=== PATIENT | female | born 2000 | race Caucasian/White ===

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

== ENCOUNTER → 2018-03-04 | Outpatient (CLI) | payer OTHER ==
[~2018-03-04] MED LIST changes: +Vibramycin100 MG PO
== END | disposition home or self-care (01) ==
LOC: LAB EV 15:38 → LAB SHORT 15:38
DX: N39.0 Urinary tract infection, site not specified (principal)
CPT/HCPCS: 87086

== ENCOUNTER 2018-08-02 16:11 | Emergency (ER) | payer OTHER ==
[~2018-08-02] VITALS: Ht 157.5 cm; Wt 86.2 kg
[2018-08-02] MEDS ORDERED: ANTIDEPRESSANT (16:16)
[2018-08-02] MEDS ORDERED: Flonase 0.05% N16 GM (16:25)
[2018-08-02] MEDS ORDERED: BENZ100A PO (16:25)
== END 2018-08-02 16:34 | disposition home or self-care (01) ==
LOC: ER 16:11
DX: J06.9 Acute upper respiratory infection, unspecified (principal); Z88.0 Allergy status to penicillin
CPT/HCPCS: 99283

== ENCOUNTER 2019-01-27 00:45 | Emergency (ER) | payer OTHER ==
[~2019-01-27] VITALS: Ht 157.5 cm; Wt 77.1 kg
[~2019-01-27 00:45] MED LIST changes: +ANTIDEPRESSANT; +BENZ100A PO; +Flonase 0.05% N16 GM
[2019-01-27] MEDS ORDERED: IUD (02:56)
[2019-01-27] MEDS ORDERED: CYCL10 PO (05:21)
== END 2019-01-27 05:41 | disposition home or self-care (01) ==
LOC: ER 00:45
DX: M25.511 Pain in right shoulder (principal); Z88.0 Allergy status to penicillin; V89.2XXA Person injured in unspecified motor-vehicle accident, traffic, initial encounter
CPT/HCPCS: 96372; 99283-25; J1885

== ENCOUNTER → 2020-03-01 | Outpatient (CLI) | payer OTHER ==
[~2020-03-01] MED LIST changes: +CYCL10 PO; +IUD
== END ==
LOC: LAB SHORT 14:44 → LAB EV 14:44
DX: R50.9 Fever, unspecified (principal); Z20.828 Contact with and (suspected) exposure to other viral communicable diseases
CPT/HCPCS: U0003